=== PATIENT | female | born 1930 | race Caucasian/White ===

== ENCOUNTER → 2017-10-07 | Outpatient (CLI) | payer OTHER | END | disposition home or self-care (01) | LOC: RAD 12:21 | DX: R06.02 Shortness of breath (principal) | CPT/HCPCS: 71046 ==

== ENCOUNTER 2018-02-21 05:59 | Observation (INO) | payer OTHER ==
[2018-02-21 06:30] LABS: ADD MAN DIFF? YES; BASO # 0.1 x10^3/uL (0.0-0.2); BASO % 1 % (0-3); EOS # 0.1 x10^3/uL (0.0-0.7); EOS % 0 % (0-3); HEMATOCRIT 38.8 % (36.0-47.0); HEMOGLOBIN 13.2 g/dL (12.0-15.5); LYMPH % 7 % (24-48); MEAN CORPUSCULAR HEMOGLOBIN 29 pg (25-35); MEAN CORPUSCULAR HGB CONC 34 g/dL (31-37); MEAN CORPUSCULAR VOLUME 84 fL (79-100); MONO # 0.9 x10^3/uL (0.0-1.1); MONO % 6 % (0-9); NEUT # 13.3 x10^3uL (1.8-7.7); NEUT % 87 % (31-73); PLATELET COUNT 246 x10^3/uL (140-400); RED BLOOD COUNT 4.61 x10^6/uL (3.50-5.40); RED CELL DISTRIBUTION WIDTH 14.1 % (11.5-14.5); WHITE BLOOD COUNT 15.3 x10^3/uL (4.0-11.0)
[2018-02-21 06:39] LABS: ANION GAP 9 (6-14); BLOOD UREA NITROGEN 24 mg/dL (7-20); CALCIUM 9.1 mg/dL (8.5-10.1); CARBON DIOXIDE 27 mmol/L (21-32); CHLORIDE 101 mmol/L (98-107); CREATININE 1.2 mg/dL (0.6-1.0); GFR 42.4; GLUCOSE 114 mg/dL (70-99); POTASSIUM 3.8 mmol/L (3.5-5.1); SODIUM 137 mmol/L (136-145)
[2018-02-21] MEDS: LIDO:MAALOX 1:1 20 ML SINGLE DOSE. SWSW (06:45)
[2018-02-21 06:51] LABS: NT-PRO BNP 680 pg/mL (0-449)
[2018-02-21 06:53] LABS: TROPONINI < 0.017 ng/mL (0.000-0.055)
[2018-02-21 07:22] LABS: INR 1.1 (0.8-1.1); PROTHROMBIN TIME PATIENT 13.6 SEC (11.7-14.0)
[2018-02-21 07:25] LABS: D-DIMER 1.09 ug/mlFEU (0.00-0.50)
[2018-02-21] MEDS ORDERED: ACETAMINOPHEN 325 MG TABLET. PO (08:15)
[2018-02-21] MEDS ORDERED: ONDANSETRON PF 4 MG/2 ML VIAL. IV (08:15)
[2018-02-21] MEDS: MORPHINE SULFATE 4 MG/ML DISP.SYRIN. IV ×2 (08:23→10:51)
[2018-02-21] MEDS ORDERED: CONTRAST GIVEN. MC (08:30)
[2018-02-21] MEDS: IV NORMAL SALINE 500ML BAG 500 ML IV (08:45)
[2018-02-21] MEDS: IOHEXOL 300 MG/ML 100ML VIAL. IV (08:59)
[2018-02-21 10:29] LABS: % LYMPHS 6 % (24-48); % MONOS 6 % (0-10); % SEGS 88 % (35-66)
[2018-02-21 10:30] LABS: PLT ESTIMATE ADEQUATE (ADEQUATE)
[2018-02-21 11:03] LABS: CHOLESTEROL 184 mg/dL (0-200); CHOLESTEROL/HDL RATIO 3.5; HDLC 52 mg/dL (40-60); LDLC 110 mg/dL (0-100); NON-HDL CHOLESTEROL 132 mg/dL (0-129); TRIGLYCERIDES 110 mg/dL (0-150); VLDLC 22 mg/dL (0-40)
[2018-02-21 11:12] LABS: THYROID STIM HORMONE (TSH) 3.207 uIU/mL (0.358-3.74)
[2018-02-21 11:26] LABS: TROPONINI < 0.017 ng/mL (0.000-0.055)
[2018-02-21] MEDS ORDERED: hydrALAZINE 20 MG/ML VIAL. IVP (11:30)
[2018-02-21] MEDS: PANTOPRAZOLE 40 MG TABLET.DR. PO (11:30)
[2018-02-21] MEDS: REGADENOSON 0.4 MG/5 ML DISP.SYRIN. IV (12:52)
[2018-02-21 15:14] LABS: TROPONINI < 0.017 ng/mL (0.000-0.055)
[2018-02-21] MEDS: ASPIRIN ENTERIC COATED 81 MG TABLET.DR. PO (16:00)
[2018-02-21] MEDS ORDERED: MAGNESIUM HYDROXIDE 2,400 MG/30 ML ORAL.SUSP. PO (17:00)
[2018-02-21] MEDS: BUDESONIDE 0.5 MG/2 ML NEBU. NEB (19:30)
[2018-02-21] MEDS: ALBUTEROL SULFATE 2.5 MG/3 ML NEBU. NEB (19:30)
[2018-02-21] MEDS: ATORVASTATIN CALCIUM 20 MG TABLET PO (21:00)
[2018-02-21] MEDS: GABAPENTIN 100 MG CAPSULE. PO (21:33)
[2018-02-21] MEDS: METOPROLOL TART IMMED RELEASE 50 MG TABLET. PO (21:34)
[2018-02-22 04:24] LABS: ADD MAN DIFF? NO
[2018-02-22 04:29] LABS: BASO % 0 % (0-3); EOS # 0.1 x10^3/uL (0.0-0.7); EOS % 1 % (0-3); HEMOGLOBIN 11.6 g/dL (12.0-15.5); LYMPH # 1.6 x10^3/uL (1.0-4.8); LYMPH % 17 % (24-48); MEAN CORPUSCULAR HEMOGLOBIN 29 pg (25-35); MEAN CORPUSCULAR HGB CONC 34 g/dL (31-37); MEAN CORPUSCULAR VOLUME 84 fL (79-100); MONO % 10 % (0-9); NEUT % 72 % (31-73); PLATELET COUNT 201 x10^3/uL (140-400); RED BLOOD COUNT 4.05 x10^6/uL (3.50-5.40); RED CELL DISTRIBUTION WIDTH 14.2 % (11.5-14.5); WHITE BLOOD COUNT 9.8 x10^3/uL (4.0-11.0)
[2018-02-22 04:57] LABS: ANION GAP 8 (6-14); BLOOD UREA NITROGEN 27 mg/dL (7-20); CALCIUM 8.7 mg/dL (8.5-10.1); CARBON DIOXIDE 27 mmol/L (21-32); CHLORIDE 103 mmol/L (98-107); CREATININE 1.2 mg/dL (0.6-1.0); GFR 42.4; GLUCOSE 95 mg/dL (70-99); POTASSIUM 3.7 mmol/L (3.5-5.1); SODIUM 138 mmol/L (136-145)
[2018-02-22] MEDS: METOPROLOL TART IMMED RELEASE 50 MG TABLET. PO (08:03)
[2018-02-22] MEDS: PANTOPRAZOLE 40 MG TABLET.DR. PO (08:03)
[2018-02-22] MEDS: amLODIPine BESYLATE 10 MG TABLET PO (08:03)
[2018-02-22] MEDS: ASPIRIN ENTERIC COATED 81 MG TABLET.DR. PO (08:03)
[2018-02-22] MEDS: hydroCHLOROthiazide 25 MG TABLET PO (08:03)
[2018-02-22] MEDS: ALBUTEROL SULFATE 2.5 MG/3 ML NEBU. NEB (08:19)
[2018-02-22] MEDS: BUDESONIDE 0.5 MG/2 ML NEBU. NEB (08:19)
[2018-02-22] MEDS ORDERED: NON FORMULARY ITEM (Pantoprazole Sodium (Protonix) 40 MG) PO (09:00)
== END 2018-02-22 12:00 | disposition home or self-care (01) ==
LOC: ER 05:59 → 4 NORTH 08:15 → 2 SOUTH 09:23
DX: K21.9 Gastro-esophageal reflux disease without esophagitis (principal); G62.9 Polyneuropathy, unspecified; I48.91 Unspecified atrial fibrillation; R13.10 Dysphagia, unspecified; J44.9 Chronic obstructive pulmonary disease, unspecified; E78.5 Hyperlipidemia, unspecified; I25.10 Atherosclerotic heart disease of native coronary artery without angina pectoris; K59.00 Constipation, unspecified; I25.2 Old myocardial infarction; I12.9 Hypertensive chronic kidney disease with stage 1 through stage 4 chronic kidney disease, or unspecified chronic kidney disease; I73.9 Peripheral vascular disease, unspecified; L57.0 Actinic keratosis; M19.90 Unspecified osteoarthritis, unspecified site; M79.606 Pain in leg, unspecified; N18.3 Chronic kidney disease, stage 3 (moderate); Z95.0 Presence of cardiac pacemaker; Z98.42 Cataract extraction status, left eye; Z98.41 Cataract extraction status, right eye; Z85.118 Personal history of other malignant neoplasm of bronchus and lung; Z88.2 Allergy status to sulfonamides; Z87.891 Personal history of nicotine dependence; Z95.5 Presence of coronary angioplasty implant and graft
CPT/HCPCS: 36415; 71045; 71275; 78452; 80048; 80061; 83880; 84443; 84484; 85007; 85025; 85379; 85610; 93005; 93017; 93306; 93925; 94640; 94760; 96374; 96375; 96376; 99285-25; A9500; G0378; G0379; J2270; J2785; J7613; J7626; Q9967